=== PATIENT | male | born 1970 | race Caucasian/White ===

== ENCOUNTER 2022-03-14 17:09 | Emergency (ER) | payer SELFPAY ==
[2022-03-14 17:09] VITALS: BP 126/88; PULSE 76; RESP 16; TEMP 36.9; O2SAT 97; BMI 25.8
--- NOTE | 2022-03-14 17:40 | EDS_ITS ---
HPI History of Present Illness Chief Complaint: Back Detail of Chief Complaint: Back pain and 30 pound weight loss since last month. Informant: patient and spouse/S.O. Onset/Context/Timing Onset: Days Context: Gradual Onset Injury: bending Timing: Continuous Quality: Sharp Location: Left Leg Current Severity: Mild Maximum Severity: Mild Worsened by: improves with Movement and Bending Relieved by: Remaining Still Associated Symptoms Associated Symptoms: Radiation to Left Leg; Negative for Numbness, Tingling, Fever, Abdominal Pain, Dysuria, Unable to Ambulate, Unable to Transfer, Urinary Retention, Urinary Incontinence, Constipation or Fecal Incontinence Narrative Narrative: 52-year-old male history of hypertension which is on blood pressure meds, high cholesterol and hypothyroidism for which he is on thyroid medications. States that last several days he is having pain in his left SI area down his left buttock and leg. No prior back surgery. He has had back pain in the past. is concerned present pound weight loss from 2 12/15/1974 in the last month. He denies any nausea or vomiting or abdominal pain. He denies any melena. He denies any fever or dysuria. Is had no significant medication changes. There is family history of diabetes but he has never been told he was diabetic. Prior similar symptoms: No Recent Illness/Hospitalization: No PFSH [facility] Medical History (Updated 03/14/22 @ 19:[address] Camacho Burris MD) Back pain HLD (hyperlipidemia) HTN (hypertension) Hypothyroid Home Medications oxycodone-acetaminophen 5 mg-325 mg tablet 1 - 2 tab PO Q4H PRN PRN Pain #20 tabs 02/13/15 [Rx Last Taken Unknown] hydrocodone-acetaminophen 5-325mg 5mg-325mg 1 tab PO Q4H PRN pain 3 days #10 tabs 03/14/22 [Rx Last Taken Unknown] Allergy/AdvReac Type Severity Reaction Status Date / Time No Known Allergies Allergy Verified 03/14/22 17:11 Social History Smoking Status: Current every day smoker tobacco type: e-cigarettes ROS ROS ED ROS Narrative Low back pain. Weight loss. Review of Systems ROS Unobtainable: Denies due to encephalopathy Constitutional Constitutional ED: Denies chills Eyes Eyes: Denies blurry vision ENT ENT ED: Denies ear pain Cardiovascular Cardiovascular: Denies chest pain Respiratory/Chest Respiratory/Chest: Denies dyspnea Gastrointestinal Gastrointestinal: Denies abdominal pain, constipation, diarrhea, melena, nausea or vomiting Genitourinary Genitourinary ED: Denies dysuria or hematuria Musculoskeletal Musculoskeletal: Reports back pain; Denies arthralgias, myalgias or neck pain Integumentary Denies abscess or Abrasions Neurologic Neurologic: Denies headache(s) Psychiatric Psychiatric: Denies anxiety Endocrine Endocrinology: Denies cold intolerance Hematologic/Lymphatic Hematologic/Lymphatic: Denies easy bleeding Allergic/Immunologic Allergic/Immunologic ED: Denies mouth swelling EXAM Physical Exam Narrative Exam Narrative: Well-appearing 52-year-old male. No acute distress. at bedside. Vital signs are stable afebrile. H EENT exam unremarkable. Neck nontender no lymphadenopathy. Lungs clear to auscultation bilaterally. Heart regular rhythm no murmur. Abdomen soft nontender normal bowel sounds no peritoneal signs. Moving all 4 extremities. Neurovascular intact. 5 tram driver strength. Dorsi plantarflexion intact. Back cervical, thoracic lumbar spine nontender. Left SI joint tender to palpation. Negative straight leg raise. No cauda equina or saddle anesthesia. Neurologic exam normal. No motor or sensory deficits. No weakness. Const Vital Signs: 03/14/22 17:09 Temperature 98.4 F Temperature Source Temporal Pulse Rate 76 Respiratory Rate 16 Blood Pressure 126/88 H Blood Pressure Mean 100 Pulse Ox 97 Oxygen Delivery Method Room Air Positive well nourished and well developed; Negative for obese, cachectic, contractures or unkempt General Appearance ED: well developed; Negative for unkempt, cachectic, contractures or pallor Nutritional Appearance: Negative for cachectic or obese HEENT Reports moist mucous membranes; Denies dry mucous membranes Negative for trauma Mouth ED: No dry mucous membranes Mouth: No dry mucous membranes Eyes PERRL and EOMs intact bilaterally General Eye ED: Negative for pale conjunctiva or scleral icterus Neck no lymphadenopathy, supple and no JVD General: Negative for tenderness Thyroid: Negative for other Resp normal respiratory effort and clear to auscultation bilaterally Effort and Inspection: Negative for pain with movement Auscultation: Negative for rales, rhonchi or wheezes Percussion: Negative for other Cardio regular rate, regular rhythm, S1 normal heart sound, S2 normal heart sound and no murmurs Palpation: Negative for palpable S3 Rate: Negative for bradycardia Rhythm: Negative for abnormal rhythm Bruits: Negative for other GI normal to inspection, nondistended, normoactive bowel sounds, soft to palpation, non-tender, non-distended and no masses Inspection: Negative for abdominal distention Auscultation: Negative for hyperactive bowel sounds Palpation: Negative for tender or guarding Back/Spine normal to inspection and no thoracic nor lumbar tenderness Back/Spine Narrative: Left SI tenderness. Negative straight leg raise. Both lower extremities are neurovascular intact with normal sensation. Normal motor strength. General Back: Negative for CVA tenderness Cervical Spine: Negative for cervical spine tenderness Thoracic Spine / Upper Back: Negative for paraspinal muscle tenderness Lumbar Spine / Lower Back: Negative for ROM limited Extremity normal to inspection and no clubbing, cyanosis or edema Neuro oriented x3 Sensorium / Orientation: alert; Negative for confused, lethargic or stuporous Sensory Exam: No other Motor Exam: strength 5/5 throughout; Negative for strength abnormal Psych mental status grossly normal Appearance: Negative for unkempt Attitude: No agitated Mood & Affect: Negative for depressed, sad or tearful Skin no rashes or lesions noted and no wounds General Skin Exam: Negative for jaundice or pallor Lesions: No lesion noted Rashes: No rashes noted Trauma: Negative for abrasion Wounds: Negative for wounds noted MDM MDM MDM Narrative Medical decision making narrative: Patient with low back pain consistent with left sciatica. is also concerned due to 30 pound unintentional weight loss in the last month. Screening labs to be obtained. Repeat exam patient doing well at 7:35 PM. I discussed both with his and his daughter at bedside. They are comfortable with him being discharged home. Treated with anti-inflammatories for acute left sciatica. Limited Oxford for more severe pain 10 no refill. Which I will send to his pharmacy. And follow- up with his primary care physician Dr. Lombardo for further evaluation of his weight loss. Lab Data Attestation: I reviewed the patient's lab results. Lab results narrative: CBC normal white count of 6. H&H is 16 and 48. Platelets normal at 231. Electrolytes potassium 3.4. Gap of 7 normal BUN and creatinine. Liver enzymes are normal except for total bilirubin 1.5. Liver enzymes otherwise unremarkable. TSH normal at 0.56. Chest x-ray normal. Labs: Laboratory Results - last 24 hr 03/14/22 03/14/22 17:55 17:55 WBC 6.3 RBC 5.84 Hgb 16.9 H Hct 48.1 MCV 82.4 MCH 28.9 MCHC 35.1 RDW Std Deviation 35.9 RDW Coeff of Kayli 11.9 Plt Count 231 MPV 9.6 Immature Gran % (Auto) 0.200 Neut % (Auto) 63.3 Lymph % (Auto) 25.6 [place] % (Auto) 8.9 Eos % (Auto) 1.4 Baso % (Auto) 0.6 Absolute Neuts (auto) 4.0 Absolute Lymphs (auto) 1.60 Nucleated RBC % 0 Sodium 136 Potassium 3.4 L Chloride 105 Carbon Dioxide 24.0 Anion Gap 7 BUN 14 Creatinine 1.12 Estim Creat Clear Calc 78.91 Est GFR (MDRD) Af Amer 89 Est GFR (MDRD) Non-Af 74 BUN/Creatinine Ratio 12.5 Glucose 103 Calcium 9.4 Total Bilirubin 1.50 H AST 39 H ALT 40 Alkaline Phosphatase 86 Total Protein 8.3 H Albumin 4.7 Globulin 3.6 Albumin/Globulin Ratio 1.3 TSH 0.56 Radiography Diagnostic Testing: Clinical Impression(s) from Imaging Studies Chest X-Ray 03/14/22 17:55 IMPRESSION: No acute radiographic abnormalities. Electronically Signed: Nixon Toussaint MD at 18:48 EDT , Chest x-ray, portable, single view shows no acute abnormality. Interpreted by myself. Normal cardiac silhouette no infiltrates. Discharge Plan Triage Chief Complaint: Back ED Provider: Camacho Burris Dx/Rx/DC Orders Clinical Impression: Sciatica, Abnormal weight loss, History of hypertension Instructions: ED Sciatica Prescriptions: New hydrocodone-acetaminophen 5-325 mg tablet 1 tab PO Q4H PRN (Reason: pain) 3 Days Qty: 10 0RF No Action oxycodone-acetaminophen 1 TABLET tablet 1 - 2 tab PO Q4H PRN PRN (Reason: Pain) Qty: 20 0RF Primary Care Provider: Nazanin Lombardo Referrals: Care Physician,No Primary [NON-STAFF] - Nazanin Lombardo MD [Primary Care Provider] - 1 Week Activity Restrictions/Additional Instructions: Follow-up with primary care physician to have further evaluation of your weight loss. Motrin and ice to the left sciatic area to decrease pain and inflammation. Oxford for more severe pain. Anytime you are taking the pain medication no alcohol and no driving. Plenty of fluids, fiber and stool softener as needed to prevent constipation. Disposition Disposition: Home, Self Care
[2022-03-14] MEDS: Ketorolac 30 MG/ML Syringe IV (17:54)
--- NOTE | 2022-03-14 17:55 | RAD_ITS ---
INDICATION: wt loss EXAMINATION/TECHNIQUE: X-RAY - XR Chest 1 View COMPARISON: None. FINDINGS: The lungs are clear. The cardiomediastinal silhouette is unremarkable. No pleural effusion or pneumothorax. Degenerative changes of the thoracic spine. RAD/Chest 1 View (Portable) IMPRESSION: No acute radiographic abnormalities. Electronically Signed: Nixon Toussaint MD at 18:48 EDT ,
[2022-03-14 18:10] LABS: Basophil# 0.04 X10^3/uL; Basophil% 0.6 % (0-1); Eosinophil# 0.09 X10^3/uL; Eosinophils% 1.4 % (0-5); Hematocrit 48.1 % (40-54); Hemoglobin 16.9 g/dL (13.0-16.5); Lymphocyte % 25.6 % (19-41); Mean Corp Hgb Conc 35.1 g/dL (32-36); Mean Corpuscular Hgb 28.9 pg (27.0-32.0); Mean Corpuscular Volume 82.4 fL (80-94); Mean Platelet Vol. 9.6 fl (6.2-12.0); Monocyte# 0.56 X10^3/uL; Monocyte% 8.9 % (0-10); NRBC Flagged by Analyzer 0 % (0-5); Neutrophil # 3.96 X10^3/uL (2.7-7.7); Neutrophil % 63.3 % (47-70); Platelet Count 231 K/mm3 (150-450); RBC Distribution Width CV 11.9 % (11.6-14.6); RBC Distribution Width SD 35.9 fl (35.1-43.9); Red Blood Count 5.84 M/mm3 (4.6-6.2); White Blood Count 6.3 K/mm3 (4.4-11.0)
[2022-03-14 18:32] LABS: ALB/GLOB Ratio 1.3 RATIO (0.9-2.4); AST(SGOT) 39 U/L (15-37); Alanine Aminotransfer ALT/SGPT 40 U/L (16-61); Albumin, Serum 4.7 g/dL (3.2-5.0); Alkaline Phosphatase 86 U/L (45-117); Anion Gap 7 (5-15); BUN 14 mg/dL (7-18); BUN/Creat Ratio 12.5 RATIO (10-20); Calcium,Total 9.4 mg/dL (8.5-10.1); Chloride 105 mmol/L (98-107); Creatinine, Serum 1.12 mg/dL (0.70-1.30); EST Glomerular Filtration Rate 74 mL/min (>60); Est Glom Filt Rate - Afr Amer 89 mL/min (>60); Estimated Creatinine Clearance 78.91 ml/min; Globulin 3.6 g/dL (2.2-4.2); Glucose 103 mg/dL (74-106); Potassium 3.4 mmol/L (3.5-5.1); Protein, Total 8.3 g/dL (6.4-8.2); Sodium Level 136 mmol/L (136-145); Thyroid Stim Hormone (TSH) 0.56 uIU/mL (0.358-3.74)
[2022-03-14] MEDS: Ondansetron 4 MG/2 ML Vial IV (19:30)
[2022-03-14] MEDS: morphine 8 MG/ML Syringe IV (19:30)
[2022-03-14 19:52] VITALS: BP 113/79; PULSE 72; O2SAT 100
--- NOTE | 2022-03-14 20:26 | ED.RN ---
checked on pt. family at bedside laughing and talking.
[2022-03-14 20:30] VITALS: BP 112/85; PULSE 48
[2022-03-14 20:37] VITALS: PULSE 65
--- NOTE | 2022-03-14 20:44 | ED.RN ---
pt family requesting to take pt home. pt states that he wants to go home and rest with a fan.
[2022-03-14 20:52] VITALS: BP 119/72; PULSE 58; RESP 12; O2SAT 99
--- NOTE | 2022-03-14 20:53 | ED.RN ---
provider aware pt requesting to go home. pt walked with out difficulty. pt ok to go home with family.
== END 2022-03-14 21:00 | disposition home or self-care (01) ==
PROVIDERS: Emergency Provider Emergency Medicine; PCP Internal Medicine; Visit Provider Emergency Medicine
DX: M54.42 Lumbago with sciatica, left side (principal); R63.4 Abnormal weight loss; I10 Essential (primary) hypertension; E78.00 Pure hypercholesterolemia, unspecified; F17.290 Nicotine dependence, other tobacco product, uncomplicated
CPT/HCPCS: 71045; 80053; 84443; 85025; 96374; 96375; 99283; A4216; J2405

== ENCOUNTER 2022-08-29 17:22 | Emergency (ER) | payer SELFPAY ==
[2022-08-29 17:24] VITALS: BP 133/88; PULSE 83; RESP 17; TEMP 36.1; O2SAT 97; BMI 26.3
[2022-08-29 18:02] VITALS: O2SAT 99
[2022-08-29 18:11] LABS: Bedside Glucose 108 mg/dL (74-106)
--- NOTE | 2022-08-29 18:12 | CT_ITS ---
STUDY: CT BRAIN WITHOUT CONTRAST REASON FOR EXAM: Male, 52 years old. Headache with blurred vision for one week. 30 pound weight loss over 3 months. RADIATION DOSAGE (If Supplied By Facility): CTDIvol = ( 44.99 ) mGy, DLP = ( 779.24 ) mGycm TECHNIQUE: Transaxial CT imaging of the brain was performed without administration of intravenous contrast material. Individualized dose optimization techniques were used for this CT. COMPARISON: No relevant priors. FINDINGS: Normal soft tissue structures. Normal calvarium. Normal size ventricles and extra-axial spaces for the patient''s age. Normal white matter tracts of the cerebral hemispheres. Normal basal ganglia and thalami. Normal brainstem. Normal cerebellum. There is no intracranial hemorrhage. There are no findings of an acute ischemic infarction. Normal visualized paranasal sinuses. CT/Brain/Head without Contrast IMPRESSION: No acute intracranial or calvarial abnormality. Electronically Signed: Cuauhtemoc Hauser DO at 18:49 EST ,
--- NOTE | 2022-08-29 18:15 | EX.ED.DYSGE1 ---
HPI History of Present Illness Chief Complaint: Vision Prob Informant: patient and spouse/S.O. Narrative Narrative: Patient presents with nonspecific cloudiness of his vision for about a week and a half or so. He states he also gets a lot of halos and fogging with bright lights while driving. He is not having trouble walking or moving. He also notices a near vision trouble focusing but that may be typical aging. On review of systems he also has about a 30 to 36 pound weight loss in the last 3 months. This is not specifically tried for. Although he denied any headaches his stated that he has been having some occasional intermittent headaches. But he is not having one now. He is not having polyuria or polydipsia. No pains in the stomach. No nausea vomiting diarrhea. No blood in the stool. No history of any cancers. His overall energy level has been essentially unchanged. They have not yet seen their primary doctor for this. He thinks his last blood work was probably over the summer. He has no history of diabetes but he does have history of high blood pressure and hypothyroidism. [facility] Medical History Back pain HLD (hyperlipidemia) HTN (hypertension) Hypothyroid Home Medications oxycodone-acetaminophen 5 mg-325 mg tablet 1 - 2 tab PO Q4H PRN PRN Pain #20 tabs 02/13/15 [Rx Last Taken Unknown] hydrocodone-acetaminophen 5-325mg 5mg-325mg 1 tab PO Q4H PRN pain 3 days #10 tabs 03/14/22 [Rx Last Taken Unknown] Allergy/AdvReac Type Severity Reaction Status Date / Time No Known Allergies Allergy Verified 08/29/22 17:23 Social History Smoking Status: Current every day smoker tobacco type: e-cigarettes ROS ROS ED Constitutional Constitutional ED: Reports weight loss; Denies chills, fever(s), subjective or sweats Eyes Eyes: Reports blurry vision, change in vision and other Details: He denied any visual field cut. Both eyes are equally affected. There is no eye pain. ; Denies diplopia ENT ENT ED: Denies sore throat Cardiovascular Cardiovascular: Denies chest pain, palpitations or racing heartbeat Respiratory/Chest Respiratory/Chest: Denies cough Gastrointestinal Gastrointestinal: Denies abdominal pain, constipation, nausea or vomiting Genitourinary Genitourinary ED: Denies hematuria Musculoskeletal Musculoskeletal: Denies arthralgias or myalgias Integumentary Denies rash Neurologic Neurologic: Reports headache(s); Denies paresthesias or weakness Endocrine Endocrinology: Denies polydipsia or polyuria Hematologic/Lymphatic Hematologic/Lymphatic: Denies easy bleeding or easy bruising Allergic/Immunologic Allergic/Immunologic ED: Denies urticaria EXAM Physical Exam Const Vital Signs: 08/29/22 17:24 08/29/22 18:02 08/29/22 20:09 Temperature 97.0 F L Temperature Source Temporal Pulse Rate 83 Respiratory Rate 17 Blood Pressure 133/88 H Blood Pressure Mean 103 Pulse Ox 97 99 99 Oxygen Delivery Method Room Air Room Air Room Air Positive well nourished and well developed Constitutional Narrative: Patient awake alert nontoxic. He had gotten up gone to the bathroom. He walked out of the room to go the bathroom came back. He has no trouble with ambulation walking balance or vision to navigate. General Appearance ED: well developed and NAD; Negative for pallor HEENT Reports moist mucous membranes HEENT Narrative: No swelling. No rashes. No proptosis. No sinus tenderness. I had the patient look at the box of gloves across the room. He looked at the small letters and numbers on that. He could read them as well are almost better than I could. He is not having any actual visual loss but he has an overall cloudiness or haziness to his vision. Eyes Eyes Narrative: Extraocular muscles seem to be intact bilaterally. I see no weakness of musculature. There is no proptosis. There is no lid lag. Pupillary responses normal. Funduscopic exam is a little bit difficult with our direct ophthalmoscope but I see no marked abnormalities. I do not see any increased cup-to-disc ratio. Neck no lymphadenopathy and no JVD Resp normal respiratory effort Cardio regular rate and regular rhythm GI normal to inspection, nondistended, normoactive bowel sounds and non-tender GI Narrative: No mass or tenderness. Back/Spine no CVA tenderness Extremity General Extremety ED: Negative for edema General Extremity: Negative for edema Neuro oriented x3 and CN's II-XII intact bilaterally Psych mental status grossly normal Skin no rashes or lesions noted General Skin Exam: Negative for jaundice or pallor MDM MDM MDM Narrative Medical decision making narrative: My independent interpretation of the patient's CT of the head done without contrast shows no mass, subdural, asymmetry or acute abnormality. I did review the final reading by radiology that also shows no acute process. Patient's blood work including electrolytes show no acute process. Glucose was normal at 96. Liver function test was normal. I did this because of the weight loss to him make sure there were not abnormal liver test that can sometimes be seen with metastatic disease. Patient's TSH however, was quite low at 0.2. His hemoglobin was mildly high at 16.7. This patient has had significant weight loss, some fitful sleep, nonspecific blurring of vision. I think this is likely due to his current hyperthyroidism. I talked with him and his . 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 I explained that it is not common to need frequent adjustments of thyroid meds early with this disease. He does have an sap pi architect at [facility] which she can see. I encouraged them to follow-up as soon as possible. If they cannot get in to their sap pi architect they should see his primary physician. He should also have a comprehensive ophthalmology exam and I have referred him for this. All questions were answered. We discussed reasons to return. Lab Data Attestation: I reviewed the patient's lab results. Labs: Laboratory Results - last 24 hr 08/29/22 08/29/22 08/29/22 17:48 18:22 18:22 WBC 6.4 RBC 5.74 Hgb 16.7 H Hct 46.8 MCV 81.5 MCH 29.1 MCHC 35.7 RDW Std Deviation 35.9 RDW Coeff of Kayli 12.3 Plt Count 243 MPV 9.2 Immature Gran % (Auto) 0.300 Neut % (Auto) 57.9 Lymph % (Auto) 30.4 [place] % (Auto) 9.0 Eos % (Auto) 1.6 Baso % (Auto) 0.8 Absolute Neuts (auto) 3.7 Absolute Lymphs (auto) 1.95 Nucleated RBC % 0 Sodium 137 Potassium 4.1 Chloride 105 Carbon Dioxide 27.0 Anion Gap 5 BUN 15 Creatinine 0.98 Estim Creat Clear Calc 87.24 Est GFR (MDRD) Af Amer 104 Est GFR (MDRD) Non-Af 86 BUN/Creatinine Ratio 15.3 Glucose 96 Calcium 8.8 Total Bilirubin 0.80 AST 22 ALT 34 Alkaline Phosphatase 78 Total Protein 7.6 Albumin 4.1 Globulin 3.5 Albumin/Globulin Ratio 1.2 TSH 0.20 L POC Glucose 108 H Radiography Diagnostic Testing: Clinical Impression(s) from Imaging Studies Brain CT 08/29/22 18:12 IMPRESSION: No acute intracranial or calvarial abnormality. Electronically Signed: Cuauhtemoc Hauser DO at 18:49 EST Reading Location ID and State: [address] [place] [address] Tel [phone], Service support , Discharge Plan Triage Chief Complaint: Vision Prob ED Provider: Ford Arthur Dx/Rx/DC Orders Clinical Impression: Hyperthyroidism, Blurred vision, bilateral, Rapid weight loss Instructions: ED Hyperthyroidism Prescriptions: No Action oxycodone-acetaminophen 1 TABLET tablet 1 - 2 tab PO Q4H PRN PRN (Reason: Pain) Qty: 20 0RF hydrocodone-acetaminophen 5-325 mg tablet 1 tab PO Q4H PRN (Reason: pain) 3 Days Qty: 10 0RF Primary Care Provider: Nazanin Lombardo Referrals: Melchor Martin MD [Med Staff - Active Staff] - As soon as possible Nazanin Lombardo MD [Primary Care Provider] - As soon as possible Activity Restrictions/Additional Instructions: Please see your sap pi architect at [facility] or your family doctor as soon as possible for further evaluation and adjustment of medication. You should also follow-up with ophthalmology to have comprehensive ocular exam. Disposition Disposition: Home, Self Care
[2022-08-29 18:29] LABS: Absolute Lymphocyte Count 1.95 X10^3/uL (0.83-4.51); Absolute Neutrophil Count 3.7 X10^3/uL (2.0-7.7); Basophil# 0.05 X10^3/uL; Basophil% 0.8 % (0-1); Eosinophils% 1.6 % (0-5); Hematocrit 46.8 % (40-54); Hemoglobin 16.7 g/dL (13.0-16.5); Lymphocyte # 1.95 X10^3/ul (0.83-4.51); Lymphocyte % 30.4 % (19-41); Mean Corp Hgb Conc 35.7 g/dL (32-36); Mean Corpuscular Hgb 29.1 pg (27.0-32.0); Mean Corpuscular Volume 81.5 fL (80-94); Mean Platelet Vol. 9.2 fl (6.2-12.0); Monocyte# 0.58 X10^3/uL; NRBC Flagged by Analyzer 0 % (0-5); Neutrophil # 3.72 X10^3/uL (2.7-7.7); Neutrophil % 57.9 % (47-70); Platelet Count 243 K/mm3 (150-450); RBC Distribution Width CV 12.3 % (11.6-14.6); RBC Distribution Width SD 35.9 fl (35.1-43.9); Red Blood Count 5.74 M/mm3 (4.6-6.2); White Blood Count 6.4 K/mm3 (4.4-11.0)
[2022-08-29 20:00] LABS: ALB/GLOB Ratio 1.2 RATIO (0.9-2.4); AST(SGOT) 22 U/L (15-37); Alanine Aminotransfer ALT/SGPT 34 U/L (16-61); Albumin, Serum 4.1 g/dL (3.2-5.0); Alkaline Phosphatase 78 U/L (45-117); Anion Gap 5 (5-15); BUN 15 mg/dL (7-18); BUN/Creat Ratio 15.3 RATIO (10-20); Calcium,Total 8.8 mg/dL (8.5-10.1); Chloride 105 mmol/L (98-107); Creatinine, Serum 0.98 mg/dL (0.70-1.30); EST Glomerular Filtration Rate 86 mL/min (>60); Est Glom Filt Rate - Afr Amer 104 mL/min (>60); Estimated Creatinine Clearance 87.24 ml/min; Globulin 3.5 g/dL (2.2-4.2); Glucose 96 mg/dL (74-106); Potassium 4.1 mmol/L (3.5-5.1); Protein, Total 7.6 g/dL (6.4-8.2); Sodium Level 137 mmol/L (136-145)
[2022-08-29 20:09] VITALS: O2SAT 99
== END 2022-08-29 20:57 | disposition home or self-care (01) ==
PROVIDERS: Emergency Provider Emergency Medicine; PCP Internal Medicine; Visit Provider Emergency Medicine
DX: E05.90 Thyrotoxicosis, unspecified without thyrotoxic crisis or storm (principal); H53.8 Other visual disturbances; I10 Essential (primary) hypertension; E78.5 Hyperlipidemia, unspecified; F17.290 Nicotine dependence, other tobacco product, uncomplicated; R63.4 Abnormal weight loss
CPT/HCPCS: 70450; 80053; 82962; 84443; 85025; 99284; A4216

== ENCOUNTER 2024-07-08 17:33 | Emergency (ER) | payer SELFPAY ==
[2024-07-08 17:35] VITALS: BP 134/94; PULSE 87; RESP 18; TEMP 36.5; O2SAT 98; BMI 27.5
[2024-07-08 17:38] VITALS: BP 134/94; PULSE 87; RESP 18; TEMP 36.5; O2SAT 98
[2024-07-08] MEDS: Ibuprofen 200 MG Tablet 400 MG PO (17:58)
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
== END 2024-07-08 18:31 | disposition home or self-care (01) ==
PROVIDERS: Emergency Provider Emergency Medicine; PCP Internal Medicine; Visit Provider Emergency Medicine
DX: J02.9 Acute pharyngitis, unspecified (principal); L04.0 Acute lymphadenitis of face, head and neck; F17.290 Nicotine dependence, other tobacco product, uncomplicated
CPT/HCPCS: 99282

== ENCOUNTER 2025-03-15 12:04 | Emergency (ER) | payer SELFPAY ==
[2025-03-15 12:05] VITALS: BP 144/103; PULSE 91; RESP 16; TEMP 36.7; O2SAT 97; BMI 26.9
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
[2025-03-15 12:53] VITALS: BP 128/90; PULSE 72; RESP 18; TEMP 36.9; O2SAT 99
== END 2025-03-15 12:54 | disposition home or self-care (01) ==
PROVIDERS: Emergency Provider Emergency Medicine; PCP Internal Medicine; Visit Provider Emergency Medicine
DX: S06.0X0A Concussion without loss of consciousness, initial encounter (principal); I10 Essential (primary) hypertension; S00.31XA Abrasion of nose, initial encounter; S00.33XA Contusion of nose, initial encounter; Y04.8XXA Assault by other bodily force, initial encounter; E78.5 Hyperlipidemia, unspecified; Y92.89 Other specified places as the place of occurrence of the external cause; F17.290 Nicotine dependence, other tobacco product, uncomplicated
CPT/HCPCS: 99283